=== PATIENT | male | born 1955 | race Caucasian/White ===

== ENCOUNTER 2017-06-22 15:37 | Emergency (ER) | payer BC ==
--- NOTE | 2017-06-22 15:49 | EDM.PDOC ---
ED HPI GENERAL MEDICAL PROBLEM - General Chief Complaint: Lower Extremity Injury/Pain Stated Complaint: left hip pain Time Seen by Provider: 06/22/17 15:39 Source of Information: Reports: Patient History Limitations: Reports: No Limitations - History of Present Illness INITIAL COMMENTS - FREE TEXT/NARRATIVE: 61 YO WM presents to ER complaining of left hip and low back pain. Pt reports he has been sitting a lot lately due to recent surgery on his left shoulder. Pt also complaining of swelling to left hand and is concerned about possible DVT in left upper extremity. Pt denies chest pain, shortness of breath or lower extremity swelling. Pt denies any fever/chills or skin changes,. Onset: Today Duration: Day(s): (1) Location: Reports: Lower Extremity, Left Quality: Reports: Ache Severity: Mild Improves with: Reports: Rest Worsens with: Reports: Movement Associated Symptoms: Reports: No Other Symptoms. Denies: Chest Pain, Fever/ Chills, Shortness of Breath Left Lower Leg Pain Score (Numeric/FACES): 5 - Related Data Allergies Allergy/AdvReac Type Severity Reaction Status Date / Time Sulfa (Sulfonamide Allergy Cannot Verified 06/22/17 15:56 Antibiotics) Remember Home Meds: Home Meds Losartan [Cozaar] 100 mg PO DAILY 06/22/17 [History] Simvastatin [Simvastatin] 40 mg PO BEDTIME 06/22/17 [History] predniSONE [Prednisone] 20 mg PO TID #15 tablet 06/22/17 [Rx] Review of Systems - Review of Systems Review Of Systems: See Below Constitutional: Reports: No Symptoms Eyes: Reports: No Symptoms Ears: Reports: No Symptoms Nose: Reports: No Symptoms Mouth/Throat: Reports: No Symptoms Respiratory: Reports: No Symptoms Cardiovascular: Reports: No Symptoms GI/Abdominal: Reports: No Symptoms Genitourinary: Reports: No Symptoms Musculoskeletal: Reports: Back Pain, Leg Pain Skin: Reports: No Symptoms Neurological: Reports: No Symptoms Psychiatric: Reports: No Symptoms ED EXAM, GENERAL - Physical Exam Exam: See Below Exam Limited By: No Limitations General Appearance: Alert, WD/WN, No Apparent Distress Nose: Normal Inspection, Normal Mucosa, No Blood Throat/Mouth: Normal Inspection, Normal Lips, Normal Teeth, Normal Gums, Normal Oropharynx, Normal Voice, No Airway Compromise Head: Atraumatic, Normocephalic Neck: Normal Inspection, Supple, Non-Tender, Full Range of Motion Respiratory/Chest: No Respiratory Distress, Lungs Clear, Normal Breath Sounds, No Accessory Muscle Use, Chest Non-Tender Cardiovascular: Normal Peripheral Pulses, Regular Rate, Rhythm, No Edema, No Gallop, No JVD, No Murmur, No Rub GI/Abdominal: Normal Bowel Sounds, Soft, Non-Tender, No Organomegaly, No Distention, No Abnormal Bruit, No Mass Back Exam: Normal Inspection, Full Range of Motion, NT Extremities: Arm Pain, Leg Pain Neurological: Alert, Oriented, CN II-XII Intact, Normal Cognition, Normal Gait, Normal Reflexes, No Motor/Sensory Deficits Psychiatric: Normal Affect, Normal Mood Skin Exam: Warm, Dry, Intact, Normal Color, No Rash Lymphatic: No Adenopathy Course - Vital Signs Last Recorded V/S: Last Vital Signs Temp 36.7 C 06/22/17 15:51 Pulse 89 06/22/17 15:51 Resp 20 06/22/17 15:51 BP 158/81 H 06/22/17 15:51 Pulse Ox 92 L 06/22/17 15:51 - Orders/Labs/Meds Orders: Active Orders 24 hr Category Date Time Status Hip Min 2V or 3V Lt [CR] Stat Exams 06/22/17 15:49 Taken Meds: Medications Discontinued Medications Generic Name Dose Route Start Last Admin Trade Name Jovanni PRN Reason Stop Dose Admin Ketorolac Tromethamine 60 mg 06/22/17 15:49 06/22/17 15:56 Toradol IM 06/22/17 15:50 60 mg ONETIME ONE Administration Methylprednisolone Sodium Succinate 125 mg 06/22/17 15:49 06/22/17 15:58 Solu-Medrol IM 06/22/17 15:50 125 mg ONETIME ONE Administration - Radiology Interpretation Free Text/Narrative:: left hip- NAD Departure - Departure Time of Disposition: 16:44 Disposition: Home, Self-Care 01 Condition: Good Clinical Impression: Hip pain, left, Left upper extremity swelling - Discharge Information Prescriptions: predniSONE [Prednisone] 20 mg PO TID #15 tablet Instructions: Hip Pain, Edema Referrals: Idania Guevara MD [Primary Care Provider] - Forms: ED Department Discharge - My Orders Last 24 Hours: My Active Orders 06/22/17 15:49 Hip Min 2V or 3V Lt [CR] Stat - Assessment/Plan Last 24 Hours: My Active Orders 06/22/17 15:49 Hip Min 2V or 3V Lt [CR] Stat Assessment:: 1. left hip pain 2. left upper extremity swelling Plan: 1. prednisone 60mg PO QD x 5 days 2. continue muscle relaxer/pain tablet as needed from surgery 3. go to clinic now for upper extremity venous doppler of left arm- await results 4. return to ER for worsening symptoms or positive doppler results
[2017-06-22] MEDS: Ketorolac 60 MG/2 ML SDV IM ONE (15:56)
[2017-06-22] MEDS: methylPREDNISolone Sodium Succinate 125 MG/2 ML SDV IM ONE (15:58)
== END 2017-06-22 16:45 | disposition home or self-care (01) ==
LOC: KA.ED 15:37
DX: I82.622 Acute embolism and thrombosis of deep veins of left upper extremity (principal); M25.552 Pain in left hip; Z88.2 Allergy status to sulfonamides; Z79.899 Other long term (current) drug therapy
CPT/HCPCS: 96372; 99282; J1885; J2930

== ENCOUNTER 2017-07-01 07:41 | Emergency (ER) | payer BC ==
--- NOTE | 2017-07-01 08:52 | EDM.PDOC ---
ED HPI GENERAL MEDICAL PROBLEM - General Chief Complaint: Lower Extremity Injury/Pain Stated Complaint: left knee pain Time Seen by Provider: 07/01/17 08:18 Source of Information: Reports: Patient History Limitations: Reports: No Limitations - History of Present Illness INITIAL COMMENTS - FREE TEXT/NARRATIVE: Patient presents with painful swelling of left knee. He has known OA of the knees but the knee hasn't been bothering him lately. His right knee was replaced two years ago. He has had Synvisc shots in the knees several years ago and had effusions occasionally at that time but not recently. No recent trauma to the knee. A week ago he had a blood clot in his left arm following rotator cuff surgery and is currently on Eliquis. Left Knee Pain Score (Numeric/FACES): 5 - Related Data Allergies Allergy/AdvReac Type Severity Reaction Status Date / Time Sulfa (Sulfonamide Allergy Cannot Verified 07/01/17 08:16 Antibiotics) Remember Home Meds: Home Meds Losartan [Cozaar] 100 mg PO DAILY 06/22/17 [History] Simvastatin [Simvastatin] 40 mg PO BEDTIME 06/22/17 [History] predniSONE [Prednisone] 20 mg PO TID #15 tablet 06/22/17 [Rx] Past Medical History Cardiovascular History: Reports: High Cholesterol, Hypertension Gastrointestinal History: Reports: None Genitourinary History: Reports: BPH Musculoskeletal History: Reports: Arthritis Psychiatric History: Reports: Depression Endocrine/Metabolic History: Reports: Obesity/BMI 30+ - Past Surgical History Cardiovascular Surgical History: Reports: None GI Surgical History: Reports: Hernia Repair/Other Male Surgical History: Reports: Renal Calculus Endocrine Surgical History: Reports: None Musculoskeletal Surgical History: Reports: Shoulder Surgery Other Musculoskeletal Surgeries/Procedures:: left due to dislocation Social & Family History - Tobacco Use Smoking Status *Q: Never Smoker - Caffeine Use Caffeine Use: Reports: Coffee, Soda Other Caffeine Use: regular - Recreational Drug Use Recreational Drug Use: No Review of Systems - Review of Systems Review Of Systems: See Below Constitutional: Denies: Chills, Fever Eyes: Denies: Vision Change Ears: Denies: Dizziness, Pain Nose: Denies: Epistaxis Mouth/Throat: Denies: Bleeding, Pain, Difficulty Swallowing Respiratory: Denies: Shortness of Breath, Cough Cardiovascular: Denies: Chest Pain, Syncope GI/Abdominal: Denies: Abdominal Pain, Vomiting Genitourinary: Denies: Dysuria Musculoskeletal: Reports: Joint Swelling (left knee). Denies: Neck Pain, Shoulder Pain Skin: Denies: Cyanosis, Jaundice, Mottled, Pallor, Diaphoresis Neurological: Denies: Confusion, Dizziness, Headache, Seizure, Syncope, Trouble Speaking Psychiatric: Denies: Confusion ED EXAM, GENERAL - Physical Exam Exam: See Below Exam Limited By: No Limitations General Appearance: Alert, WD/WN, No Apparent Distress Eye Exam: Bilateral Eye: EOMI, Normal Inspection, PERRL Ears: Normal External Exam, Hearing Grossly Normal Nose: Normal Inspection, No Blood Throat/Mouth: Normal Inspection, Normal Lips, Normal Voice, No Airway Compromise Head: Atraumatic, Normocephalic Neck: Normal Inspection, Full Range of Motion Respiratory/Chest: No Respiratory Distress, Lungs Clear, Normal Breath Sounds Cardiovascular: Regular Rate, Rhythm, No Murmur GI/Abdominal: No Distention Back Exam: No: CVA Tenderness (L), CVA Tenderness (R) Extremities: Normal Range of Motion, Joint Swelling (significant left knee suprapatellar effusion medial and lateral; this was prepped with betadine and sterile technique was used to anesthetize with 2 cc of lidocaine; using an 18 ga needle, 70 cc of straw-colored fluid was aspirated from a lateral suprapratellar access. This decreased the swelling and the discomfort significantly. Sterile technique was used throughout and there was minimal bleeding from aspiration site. No cellulitis, erythema or other sign of infection.). No: Pedal Edema, Jeaneth's Sign, Increased Warmth, Mottled, Pallor, Redness Neurological: Alert, Oriented, Normal Cognition, No Motor/Sensory Deficits Psychiatric: Normal Affect, Normal Mood Skin Exam: Warm, Dry, Intact, Normal Color, No Rash Course - Vital Signs Last Recorded V/S: Last Vital Signs Temp 97.6 F 07/01/17 07:41 Pulse 83 07/01/17 07:41 Resp 20 07/01/17 07:41 BP 142/75 H 07/01/17 07:41 Pulse Ox 98 07/01/17 07:41 - Orders/Labs/Meds Meds: Medications Discontinued Medications Generic Name Dose Route Start Last Admin Trade Name Freq PRN Reason Stop Dose Admin Lidocaine HCl Confirm 07/01/17 08:28 Xylocaine 1% Administered 07/01/17 08:29 Dose 20 ml .ROUTE .[facility] ONE - Re-Assessments/Exams Free Text/Narrative Re-Assessment/Exam: 07/01/17 08:59 70 cc of straw colored fluid aspirated from left knee as described above. Patient tolerated the procedure well. Discussed findings, expectations treatment plan and patient was discharged to home in stable condition. Departure - Departure Time of Disposition: 08:45 Disposition: Home, Self-Care 01 Condition: Good Clinical Impression: Effusion of knee joint, left - Discharge Information Instructions: Knee Effusion Additional Instructions: 1. Wear the CANDE wrap as needed to control and prevent swelling of the knee. 2. Return to activities as tolerated. 3. Follow up with your PCP in 2-3 days for recheck, sooner if any problems or worsening.
[2017-07-01] MEDS: Lidocaine 1% 20 ML MDV ONE (09:00)
== END 2017-07-01 09:05 | disposition home or self-care (01) ==
LOC: KA.ED 07:41
DX: M25.462 Effusion, left knee (principal); I10 Essential (primary) hypertension; E78.00 Pure hypercholesterolemia, unspecified; Z88.2 Allergy status to sulfonamides; Z79.899 Other long term (current) drug therapy
CPT/HCPCS: 20610; 99283

== ENCOUNTER 2018-12-18 07:55 | Day surgery (SDC) | payer MEDICARE, BC ==
[~2018-12-18 07:55] MED LIST: Bupivacaine 0.5% 30 ML SDV ONE; Lidocaine 0.5% 50 ML SDV ONE; Midazolam 1 MG/ML 2 ML SDV ONE; Propofol 200 MG/20 ML SDV ONE; ceFAZolin 1 GM Vial ONE
[2018-12-18] MEDS ORDERED: Ketamine 200 MG/20 ML MDV IV ONE ×2 (07:56)
[2018-12-18] MEDS ORDERED: Propofol 200 MG/20 ML SDV IV ONE (07:56)
[2018-12-18] MEDS ORDERED: Midazolam 1 MG/ML 2 ML SDV IV ONE (07:56)
[2018-12-18] MEDS ORDERED: Lidocaine 0.5% 50 ML SDV INJECT ONE (07:56)
[2018-12-18] MEDS ORDERED: ceFAZolin 1 GM Vial IV ONE (07:56)
[2018-12-18] MEDS ORDERED: Sodium Chloride 0.9% 10 ML Syringe FLUSH PRN (08:00)
[2018-12-18] MEDS ORDERED: Lactated Ringers 1,000 ML IV SCH (08:00)
[2018-12-18] MEDS ORDERED: Ketamine 200 MG/20 ML MDV ONE (08:18)
[2018-12-18] MEDS ORDERED: Bupivacaine 0.5% 10 ML SDV INFILT ONE (09:02)
--- NOTE | 2018-12-23 11:01 | PCM.OPNOTE ---
- General Post-Op/Procedure Note Date of Surgery/Procedure: 12/19/18 Operative Procedure(s): Right carpal tunnel decompression for carpal tunnel syndrome. Pre Op Diagnosis: right carpal tunnel syndrome. Post-Op Diagnosis: right carpal tunnel syndrome. Anesthesia Technique: Regional Block Primary Surgeon: Idania Guevara Condition: Good Free Text/Narrative:: INFORMED CONSENT: Patient is here today for elective Rt arpal tunnel decompression. All aspects of this procedure have been discussed with the patient. All possible complications including but not limited to infection, pain, bleeding and unknown complications. Anesthetic complications were handled by anesthesia department. The patient understands fully well. Patient did not have any further questions for me at the end of my interview. The patient wishes for me to proceed. PROCEDURE: Patient was kept in the supine position and the satisfactory Yulia block anesthesia was administered. The Rt arm was thoroughly prepped and draped in the usual fashion. The tourniquet was placed to the Rt upper arm and a vertical incision was made in the palm directly distal to the distal wrist crease. The skin incision was deepened through the subcutaneous tissue, the palmar aponeurosis was incised and then we came down upon the transverse carpal ligament, which was opened along the line of the skin incision. Extreme care was taken to protect the median nerve below. Careful neurolysis was performed meticulously. Approximately 2 cc of Marcaine 0.5% was instilled into the wound and skin was closed using mattress sutures with 3.0 Nylon. The tourniquet was released. A sterile pressure dressing was applied. The patient tolerated the procedure well and was transferred to the recovery room in excellent condition.
== END 2018-12-18 11:00 | disposition home or self-care (01) ==
LOC: KA.SDS 07:55
PROVIDERS: ATTEND Family Medicine
DX: G56.01 Carpal tunnel syndrome, right upper limb (principal); I10 Essential (primary) hypertension; E78.2 Mixed hyperlipidemia; M17.12 Unilateral primary osteoarthritis, left knee; N20.0 Calculus of kidney; E66.9 Obesity, unspecified; Z68.34 Body mass index [BMI] 34.0-34.9, adult; Z88.2 Allergy status to sulfonamides; Z88.1 Allergy status to other antibiotic agents; Z86.718 Personal history of other venous thrombosis and embolism; Z79.82 Long term (current) use of aspirin; Z79.899 Other long term (current) drug therapy
CPT/HCPCS: 64721; J0690; J2001; J2250; J2704; J3490; J7120; 01810

== ENCOUNTER 2021-06-20 09:35 | Day surgery (SDC) | payer MEDICARE, BC ==
[~2021-06-20 09:35] MED LIST changes: -Bupivacaine 0.5% 30 ML SDV ONE; -Lidocaine 0.5% 50 ML SDV ONE; -Midazolam 1 MG/ML 2 ML SDV ONE; -Propofol 200 MG/20 ML SDV ONE; +Sodium Chloride 0.9% 10 ML Syringe FLUSH PRN; -ceFAZolin 1 GM Vial ONE
[2021-06-20] MEDS ORDERED: Midazolam 1 MG/ML 2 ML SDV ONE (09:55)
[2021-06-20] MEDS ORDERED: Propofol 200 MG/20 ML SDV ONE ×2 (09:56→11:08)
[2021-06-20] MEDS: Lactated Ringers 1,000 ML IV SCH (10:05)
== END 2021-06-20 12:20 | disposition home or self-care (01) ==
LOC: KA.SDS 09:35
PROVIDERS: ATTEND Family Medicine
DX: D12.3 Benign neoplasm of transverse colon (principal); K57.30 Diverticulosis of large intestine without perforation or abscess without bleeding; E78.2 Mixed hyperlipidemia; I10 Essential (primary) hypertension; G30.0 Alzheimer's disease with early onset; E66.9 Obesity, unspecified; Z79.82 Long term (current) use of aspirin; Z79.899 Other long term (current) drug therapy; Z88.2 Allergy status to sulfonamides; Z88.8 Allergy status to other drugs, medicaments and biological substances; Z68.33 Body mass index [BMI] 33.0-33.9, adult
CPT/HCPCS: 00812; J2250; J2704; J7120

== ENCOUNTER 2021-07-11 01:00 | Emergency (ER) | payer MEDICARE, BC ==
[2021-07-11] MEDS ORDERED: Sodium Chloride 0.9% 1,000 ML ONE (01:27)
[2021-07-11] MEDS ORDERED: Ketorolac 30 MG/ML SDV ONE (01:27)
[2021-07-11] MEDS ORDERED: Tamsulosin 0.4 MG Cap.ER PO ONE (01:41)
[2021-07-11] MEDS ORDERED: Ketorolac 30 MG/ML SDV IVPUSH ONE (01:55)
[2021-07-11] MEDS ORDERED: Sodium Chloride 0.9% 1,000 ML IV ONE (01:55)
[2021-07-11 01:59] LABS: ANION GAP 17.1 mmol/L (5-15); CHLORIDE,CL 103 mmol/L (98-107); SODIUM,NA 139 mmol/L (136-145)
[2021-07-11 03:29] VITALS: BP 140/60; PULSE 66
== END 2021-07-11 02:50 | disposition home or self-care (01) ==
LOC: KA.ED 01:00
DX: N23 Unspecified renal colic (principal); R31.9 Hematuria, unspecified; E78.00 Pure hypercholesterolemia, unspecified; I10 Essential (primary) hypertension; E66.9 Obesity, unspecified; Z68.32 Body mass index [BMI] 32.0-32.9, adult; Z88.2 Allergy status to sulfonamides; Z88.1 Allergy status to other antibiotic agents; Z79.899 Other long term (current) drug therapy; Z79.82 Long term (current) use of aspirin
CPT/HCPCS: 36415; 74176; 80053; 81001; 85025; 96374; 99284; 99284-25; A9270-GY; J1885; J7030

== ENCOUNTER 2021-07-13 06:08 | Emergency (ER) | payer MEDICARE, BC ==
[2021-07-13] MEDS: Ketorolac 30 MG/ML SDV IVPUSH ONE (06:20)
[2021-07-13] MEDS: Sodium Chloride 0.9% 10 ML Syringe FLUSH PRN (06:56)
[2021-07-13 07:10] LABS: ANION GAP 15.7 mmol/L (5-15); CHLORIDE,CL 104 mmol/L (98-107); SODIUM,NA 139 mmol/L (136-145)
[2021-07-13] MEDS: HYDROmorphone 1 MG/ML Syringe IM ONE (09:15)
== END 2021-07-13 09:25 | disposition home or self-care (01) ==
LOC: KA.ED 06:08
DX: N13.2 Hydronephrosis with renal and ureteral calculous obstruction (principal); E78.00 Pure hypercholesterolemia, unspecified; I10 Essential (primary) hypertension; N40.0 Benign prostatic hyperplasia without lower urinary tract symptoms; E66.9 Obesity, unspecified; Z68.33 Body mass index [BMI] 33.0-33.9, adult; Z79.899 Other long term (current) drug therapy; Z79.82 Long term (current) use of aspirin
CPT/HCPCS: 36415; 74176; 80048; 81001; 85025; 96374; 99284; 99284-25; J1885